=== PATIENT | male | born 1995 | race American Indian/Alaskan Native ===

== ENCOUNTER 2020-08-03 10:46 | Outpatient (CLI) | payer OTHER ==
--- NOTE | 2020-08-03 12:34 | XRay Report ---
LUMBAR SPINE 3 VIEWS INDICATION / CLINICAL INFORMATION: BACK PAIN. COMPARISON: None available FINDINGS: No significant skeletal abnormality. Alignment is normal. No evidence of instability with flexion or extension Signer Name: Rodolfo Macdonald MD FACManuel Signed: 08/03/2020 12:30 PM Workstation Name: [id number]
== END 2020-08-03 10:47 | disposition home or self-care (01) ==
LOC: XRAY 10:46
PROVIDERS: ATTEND Internal Medicine
DX: M54.5 Low back pain (principal)
CPT/HCPCS: 72100